=== PATIENT | female | born 1995 | race Hispanic/Latino ===

== ENCOUNTER 2023-02-08 18:00 | Inpatient (IN) | payer MEDICAID, OTHER ==
[2023-02-08] MEDS ORDERED: Misoprostol 200 MCG TAB PR PRN (20:16)
[2023-02-08] MEDS ORDERED: Ondansetron PF 4 MG/2 ML Vial IVP PRN (20:16)
[2023-02-08] MEDS ORDERED: fentaNYL 50 mcg/mL 1 mL Vial SLOW IVP PRN (20:16)
[2023-02-08] MEDS ORDERED: hydrALAZINE 20 MG/ML VIAL SLOW IVP PRN (20:16)
[2023-02-08] MEDS ORDERED: Diphenoxylate HCl/Atropine Tablet PO PRN (20:16)
[2023-02-08] MEDS ORDERED: Carboprost 250 MCG/ML AMP IM PRN (20:16)
[2023-02-08] MEDS ORDERED: HYDROcodone/Acetaminophen 5/325 mg Tablet PO PRN (20:16)
[2023-02-08] MEDS ORDERED: Acetaminophen 500 MG TAB PO PRN (20:16)
[2023-02-08] MEDS ORDERED: Tranexamic Acid 1,000 MG/10 ML VIAL IVP PRN (20:16)
[2023-02-08] MEDS ORDERED: Ibuprofen 800 MG TAB PO PRN (20:16)
[2023-02-08] MEDS ORDERED: Methylergonovine 0.2 MG/ML VIAL IM PRN (20:16)
[2023-02-08] MEDS ORDERED: Promethazine HCl 25 MG/ML VIAL IM PRN (20:16)
[2023-02-08] MEDS ORDERED: Lidocaine 1% (PF) 30 ML VIAL SC PRN (20:16)
[2023-02-08] MEDS ORDERED: NS w/ Oxytocin 30 units 500 ML IV SCH ×3 (20:30)
[2023-02-08] MEDS: Misoprostol 100 MCG TAB PO SCH (21:59)
[2023-02-08 22:25] LABS: Hematocrit 35.7 % (34.9-44.5); Hemoglobin 11.7 g/dL (12.0-15.5); Mean Corpuscular HGB CONC 32.8 g/dL (32.0-36.0); Mean Corpuscular Hemoglobin 27.6 pg (27.0-33.0); Mean Corpuscular Volume 84.2 fl (81.6-98.3); Mean Platelet Volume 11.8 fl (7.4-10.4); Platelet Count 212 10x3/uL (150-450); Red Blood Cell (RBC) Count 4.24 10x6/uL (3.90-5.03); White Blood Cell (WBC) Count 6.1 10x3/uL (3.5-10.5)
[2023-02-08 22:55] LABS: HBSAg Index 0.15 S/CO (0-0.99); Hep B Surf Ag - L&D Non-Reactive S/CO (NonReactive); Syphilis Antibody Nonreactive (Nonreactive); Syphilis Antibody Index 0.06 S/CO (<1.00 Non-Reactive)
[2023-02-08 23:42] VITALS: BMI 43.0
[2023-02-09 00:13] LABS: Glucose 74 mg/dL (70-105)
[2023-02-09] MEDS: Misoprostol 100 MCG TAB PO SCH ×2 (03:12→14:58)
[2023-02-09] MEDS: Lactated Ringer's 1,000 ML IV SCH ×2 (08:00→22:52)
[2023-02-09] MEDS ORDERED: fentaNYL/Ropivacaine Epidural 100 ML ONE (08:43)
[2023-02-09] MEDS ORDERED: Lactated Ringer's 500 ML IV PRN (09:08)
[2023-02-09] MEDS ORDERED: Acetaminophen 325 MG TAB PO PRN (09:08)
[2023-02-09] MEDS ORDERED: Naloxone HCl 0.4 mg/ml Vial IVP PRN ×2 (09:08)
[2023-02-09] MEDS ORDERED: Moisturizing Cream (Eucerin) 113 GM JAR TOP PRN (09:08)
[2023-02-09] MEDS ORDERED: Ondansetron PF 4 MG/2 ML Vial IVP PRN ×2 (09:08→14:57)
[2023-02-09] MEDS ORDERED: ePHEDrine Sulfate 50 MG/10 ML VIAL SLOW IVP PRN (09:08)
[2023-02-09] MEDS ORDERED: Promethazine HCl 25 MG/ML VIAL IM PRN ×2 (09:08→14:57)
[2023-02-09] MEDS ORDERED: diphenhydrAMINE 50 MG/ML VIAL IVP PRN (09:08)
[2023-02-09] MEDS ORDERED: fentaNYL 2 mcg/Ropivacaine 0.2% Epidural 100 ML CADD EPIDURAL SCH (09:15)
[2023-02-09] MEDS ORDERED: Communication Order-Pharmacy FS SCH (09:15)
[2023-02-09] MEDS ORDERED: Tranexamic Acid 1,000 MG/10 ML VIAL ONE (09:58)
[2023-02-09] MEDS ORDERED: NS w/ Oxytocin 30 units 500 ML ONE (09:58)
[2023-02-09] MEDS ORDERED: Carboprost 250 MCG/ML AMP ONE (09:59)
[2023-02-09] MEDS ORDERED: Methylergonovine 0.2 MG/ML VIAL ONE (09:59)
[2023-02-09] MEDS ORDERED: Milk Of Magnesia 30 ML UDCUP PO PRN (14:57)
[2023-02-09] MEDS ORDERED: HYDROcodone/Acetaminophen 5/325 mg Tablet PO PRN (14:57)
[2023-02-09] MEDS ORDERED: Boostrix 0.5 ML (Tdap) VIAL (>/=7 yrs of age) IM ONE (14:57)
[2023-02-09] MEDS ORDERED: hydrALAZINE 20 MG/ML VIAL SLOW IVP PRN (14:57)
[2023-02-09] MEDS ORDERED: Lanolin Ointment 7 GM TUBE TOP PRN (14:57)
[2023-02-09] MEDS ORDERED: diphenhydrAMINE 25 MG CAP PO PRN (14:57)
[2023-02-09] MEDS ORDERED: Bisacodyl 10 MG SUPP PR PRN (14:57)
[2023-02-09] MEDS: Ferrous Sulfate 325 MG TAB PO SCH (16:46)
[2023-02-09] MEDS: Ibuprofen 800 MG TAB PO SCH (21:20)
[2023-02-09] MEDS: Docusate 100 MG CAP PO SCH (21:20)
[2023-02-10 04:28] VITALS: TEMP 98.1
[2023-02-10] MEDS: Ibuprofen 800 MG TAB PO SCH ×2 (06:17→14:22)
[2023-02-10] MEDS: Docusate 100 MG CAP PO SCH (08:19)
[2023-02-10] MEDS: Ferrous Sulfate 325 MG TAB PO SCH (08:20)
[2023-02-10] MEDS ORDERED: Prenatal Vitamin 1 TAB PO SCH (09:00)
[2023-02-10 11:20] VITALS: BP 97/56
== END 2023-02-10 18:40 | disposition home or self-care (01) | DRG 807 ==
LOC: CSHLD 20:08 → CSHPP 02-09 14:56
PROVIDERS: ADMIT Family Medicine; ATTEND Family Medicine
PROC: 10E0XZZ Delivery of Products of Conception, External Approach (ICD-10-PCS; principal; 2023-02-09)
PROC: 10907ZC Drainage of Amniotic Fluid, Therapeutic from Products of Conception, Via Natural or Artificial Opening (ICD-10-PCS; 2023-02-09)
PROC: 3E0P7VZ Introduction of Hormone into Female Reproductive, Via Natural or Artificial Opening (ICD-10-PCS; 2023-02-09)
DX: O24.420 Gestational diabetes mellitus in childbirth, diet controlled (principal); Z37.0 Single live birth; O99.214 Obesity complicating childbirth; Z3A.39 39 weeks gestation of pregnancy; O69.81X0 Labor and delivery complicated by cord around neck, without compression, not applicable or unspecified; E66.9 Obesity, unspecified; Z79.899 Other long term (current) drug therapy
CPT/HCPCS: 36416; 51702; 82947; 85027; 86780; 86850; 86900; 86901; 87340; J2590; J7120